=== PATIENT | male | born 1965 | race Caucasian/White ===

== ENCOUNTER → 2020-11-06 | Outpatient (CLI) | payer OTHER, SELFPAY ==
--- NOTE | 2020-11-06 12:55 | LES_PTH ---
PATIENT: ELIZA SARABIA LOC: [facility] U#:[id number] AGE/SX: 55/M ROOM: RE11/06/[address]: Dr. Jessee Mitchell MD : 1965 BED: DIS: 11/06/2020 SPEC #: [id number] RECD: 11/06/20 17:30 STATUS: BOBO ZEFERINO #: [id number] KRISTY: 11/06/20 12:[address]: Jessee Mitchell DEPT: SURGICAL PATHOLOGY RECD BY: Fallon Koch Tissues: Eye, NOS Procedures: Surgery Specimen Level IV HEADER OPERATION: Excision pterygium left eye PRE-OP DIAGNOSIS: Pterygium left eye TISSUE SUBMITTED: Pterygium left eye MICROSCOPIC DIAGNOSIS Pterygium of left eye, biopsy: Consistent with pterygium. AM:chaka 11/08/2020 MICROSCOPIC DESCRIPTION Slides are reviewed. GROSS DESCRIPTION Received in fixative is one container labeled with the patient's name and designated pterygium left. The specimen consists of one irregular fragment of light valdivia soft tissue that measures 0.3 x 0.2 x 0.1 cm. The specimen is totally submitted in one cassette. / AM:chaka 11/07/20 TC:5 CPT: 64752
== END | disposition home or self-care (01) ==
LOC: LABSPEC 11-07 08:04
PROVIDERS: Referring Provider Ophthalmology; Visit Provider Ophthalmology
DX: H11.002 Unspecified pterygium of left eye (principal)
CPT/HCPCS: 88305